=== PATIENT | female | born 1995 | race Caucasian/White ===

== ENCOUNTER 2019-01-28 21:17 | Emergency (ER) | payer BC ==
[~2019-01-28] VITALS: Ht 162.6 cm; Wt 107.0 kg
[2019-01-28 21:22] VITALS: BP 119/80
--- NOTE | 2019-01-28 21:30 | NUR ---
PT BIB FRIEND C/O FLANK PAIN X 3 DAYS. PAIN TO PALPATION. DENIES TRAUMA OR INJURY. DENIES FEVER, HAD SOME PELVIC PRESSURE. PT THINKS IT IS A UTI DUE TO URINE FREQUENCY. DENIES BURNING DURING URINATION. DENIES N/V. SAFETY PRCAUTIONS IMPLEMENTED. PENDING BRONSON LEMA. PMH: ASTHMA AND APPENDECTOMY
[2019-01-28] MEDS ORDERED: HYDROcodone/APAP 5/325 MG 1 TAB TAB PO ONE (21:40)
[2019-01-28 21:46] LABS: APPEARANCE,URINE CLEAR (CLEAR); BLOOD, URINE TRACE-I (NEGATIVE); COLOR,URINE YELLOW (YELLOW); UGLUCOSE NEGATIVE (NEGATIVE)
[2019-01-28 21:47] LABS: BILIRUBIN,URINE NEGATIVE (NEGATIVE); LEUKOCYTE ESTERASE ,URINE NEGATIVE (NEGATIVE); NITRITE, URINE NEGATIVE (NEGATIVE)
--- NOTE | 2019-01-28 21:48 | NUR ---
PT TO CT SCAN VIA WHEELCHAIR.
[2019-01-28 22:10] LABS: RBC,URINE 0-5 /HPF (0-5); WBC,URINE NONE SEEN /HPF (0-5)
[2019-01-28] MEDS ORDERED: CIPROFLOXACIN 250 MG TAB PO ONE (22:30)
--- NOTE | 2019-01-28 22:35 | NUR ---
PT STATES SHE HAS SOME RELIEF FROM THE PAIN TO 4/10 AT THIS TIME AND STATES SHE IS FEELING BETTER.
--- NOTE | 2019-01-28 22:45 | NUR ---
Patient discharged with v/s stable. Patient acting appropriatly, states she is ready to go home, pain has decreased to 0/10 at this time. Written and verbal after care instructions given and explained. Patient alert, oriented and verbalized understanding of instructions. Ambulatory with steady gait. All questions addressed prior to discharge. ID band removed. Patient advised to follow up with PMD. Rx of Cipro given. Patient educated on indication of medication including possible reaction and side effects. Opportunity to ask questions provided and answered.
[2019-01-28 23:03] VITALS: BP 121/73
== END 2019-01-28 22:45 | disposition home or self-care (01) ==
LOC: MED 21:17
DX: N39.0 Urinary tract infection, site not specified (principal)
CPT/HCPCS: 81001; 81025; 99284

== ENCOUNTER 2019-03-10 20:24 | Emergency (ER) | payer BC, MEDICAID ==
[~2019-03-10] VITALS: Ht 170.2 cm; Wt 106.6 kg
[2019-03-10 20:35] VITALS: BP 123/65
== END 2019-03-10 22:05 | disposition home or self-care (01) ==
LOC: MED 20:24
DX: N39.0 Urinary tract infection, site not specified (principal); R19.7 Diarrhea, unspecified; J45.909 Unspecified asthma, uncomplicated; K21.9 Gastro-esophageal reflux disease without esophagitis; Z98.890 Other specified postprocedural states; Z90.89 Acquired absence of other organs
CPT/HCPCS: 81002; 81025; 99283

== ENCOUNTER 2019-04-29 15:00 | Emergency (ER) | payer MEDICAID ==
[~2019-04-29] VITALS: Ht 167.6 cm; Wt 108.4 kg
[2019-04-29 15:42] VITALS: BP 113/78
--- NOTE | 2019-04-29 15:46 | NUR ---
URINE CUP HANDED TO PT FOR SAMPLE
--- NOTE | 2019-04-29 17:17 | NUR ---
PT TO ER BED 7
--- NOTE | 2019-04-29 17:59 | NUR ---
C/O SOB AND PRODUCTIVE COUGH X 3 DAYS AGO---FULL CLEAR SPEECH WITH MILD NARE FLARE NOTED. SEEN AT [facility] AND DX URI, RX COUGH ALBUTEROL. PT STATES NO CHEST XRAY WAS TAKEN. CLEAR BILATERAL LUNG SOUNDS. VSS. [id number]. BED IS DOWN, LOCKED, BED RAIL X 1, ERMD TO SEE PT. HX--ASTHMA RX--ALBUTEROL Addendum: 04/29/19 at 1828 by [email or web address] COARSE LUNG SOUNDS BILATERALLY THROUGHOUT LUNG WARREN
--- NOTE | 2019-04-29 18:06 | NUR ---
DR RUBI AT BEDSIDE
[2019-04-29] MEDS ORDERED: predniSONE 20 MG TAB PO ONE (18:10)
[2019-04-29] MEDS ORDERED: ALBUTEROL SULFATE/IPRATROPIU 3 ML SOL IH ONE (18:10)
--- NOTE | 2019-04-29 18:16 | NUR ---
RT AT BEDSIDE
[2019-04-29 18:50] VITALS: BP 117/63
--- NOTE | 2019-04-29 18:50 | NUR ---
Patient discharged with v/s stable. Written and verbal after care instructions given and explained. Patient alert, oriented and verbalized understanding of instructions. Ambulatory with steady gait. All questions addressed prior to discharge. ID band removed. Patient advised to follow up with PMD. Rx of prednisone, azithromycin, albuterol, guaiatussin given. Patient educated on indication of medication including possible reaction and side effects. Opportunity to ask questions provided and answered.
== END 2019-04-29 18:50 | disposition home or self-care (01) ==
LOC: MED 15:00
DX: J45.909 Unspecified asthma, uncomplicated (principal); K21.9 Gastro-esophageal reflux disease without esophagitis; Z90.49 Acquired absence of other specified parts of digestive tract
CPT/HCPCS: 71045; 94640; 99283; J7512; J7620